=== PATIENT | female | born 1980 ===

== ENCOUNTER 2018-05-03 19:52 | Emergency (ER) | payer BC, MEDICAID ==
--- NOTE | 2018-05-03 20:16 | Emergency Department Record ---
History of Present Illness - General Chief Complaint: Fall Injury Stated Complaint: FALL/RT SIDE Time Seen by Provider: 05/03/18 20:01 Source: Patient Mode of Arrival: Ambulatory Limitations: No limitations - History of Present Illness Initial Comments: The patient is here due to a slip on ice and fall about 2 hours ago. She landed on her R side and now has pain over her R shoulder, elbow, wrist, Ribs, and Hip. The patient is ambulating without difficulty and denies any head trauma or neck injury. She also denies any AP, nausea, vomiting, or back pain. 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, by family Place Fall Occurred: Home Loss of Consciousness: None Symptoms Prior to Fall: None Severity: Severe Severity scale (1-10): 9 Quality: Aching Context: Tripped/slipped - [place] Coma Scale Eye Response: (4) Open spontaneously Motor Response: (6) Obeys commands Verbal Response: (5) Oriented [place] Total: 15 - Related Data Home Medications Medication Instructions Recorded Confirmed Last Taken Exemestane 25 mg PO DAILY 05/03/18 05/03/18 05/02/18 Allergies Allergy/AdvReac Type Severity Reaction Status Date / Time aspirin AdvReac PT UNSURE Unverified 02/15/17 08:04 OF REACTION codeine AdvReac ABDOMINAL Verified 05/03/18 20:07 PAIN Travel Screening - Travel/Exposure Within Last 30 Days Have you traveled within the last 30 days?: No - Travel Symptoms Symptom Screening: None Review of Systems Constitutional: Denies: Chills, Fever Eyes: Denies: Eye discharge ENT: Denies: Congestion Respiratory: Denies: Cough, Dyspnea Past Medical History - SOCIAL HISTORY Smoking Status: Never smoker Alcohol Use: Rare Drug Use: None - RESPIRATORY Hx Respiratory Disorders: No - CARDIOVASCULAR Hx Cardio Disorders: No - NEURO Hx Neuro Disorders: No - GI Hx GI Disorders: No - Hx Genitourinary Disorders: No - ENDOCRINE Hx Endocrine Disorders: No - MUSCULOSKELETAL Hx Musculoskeletal Disorders: No - PSYCH Hx Psych Problems: Yes Hx Anxiety: Yes - HEMATOLOGY/ONCOLOGY Hx Hematology/Oncology Disorders: Yes Hx Cancer: Yes Hx Chemotherapy: Yes Hx Radiation Therapy: Yes Family Medical History Any Significant Family History?: No Family Hx Comment (NOT TO BE USED IN PLACE OF ITEMS BELOW): denies Physical Exam - General General Appearance: Alert, Oriented x3, Cooperative, No acute distress - Head Head exam: Atraumatic, Normocephalic, Normal inspection - Eye Eye exam: Normal appearance, PERRL, EOMI - ENT Throat exam: Normal inspection. negative: Tonsillar erythema, Tonsillar exudate - Neck Neck exam: Normal inspection, Full ROM. negative: Meningismus, Tenderness ( There is no Cspine tenderness.) - Respiratory Respiratory exam: Normal lung sounds bilaterally, Chest wall tenderness (There is mild tenderness to the R lateral ribs.). negative: Respiratory distress - Cardiovascular Cardiovascular Exam: Regular rate, Normal rhythm, Normal heart sounds - GI/Abdominal GI/Abdominal exam: Soft, Normal bowel sounds. negative: Tenderness - Extremities Extremities exam: Normal inspection (There is no R arm bruising or swelling.), Normal capillary refill, Tenderness (There is mild tenderness to the R shoulder , elbow, wrist, and Hip. ). negative: Full ROM (The patient has decreased full ROM of the R shoulder, elbow and wrist due to pain. She is able to abduct to 90 degrees.) - Neurological Neurological exam: Alert, Normal gait, Other (The R arm is NVI.). negative: Abnormal gait, Motor sensory deficit - Skin Skin exam: negative: Rash Course Vital Signs 05/03/18 20:00 Temperature 97.9 F Pulse Rate [ 68 Pulse Ox Probe] Respiratory 20 Rate Blood Pressure 110/85 [Left Arm] Pulse Ox 100 - Reevaluation(s) Reevaluation #1: The patient is doing better at this time and her R arm ROM is improving. I did inform her of the neg xrays and the need for F/U with a PCP next week if not better. 05/03/18 21:17 05/03/18 21:20 Disposition Disposition: Discharge Clinical Impression: Contusion of arm, right, multiple sites Qualifiers: Encounter type: initial encounter Qualified Code(s): S40.021A - Contusion of right upper arm, initial encounter Contusion of rib on right side Qualifiers: Encounter type: initial encounter Qualified Code(s): S20.211A - Contusion of right front wall of thorax, initial encounter Disposition: Home, Self-Care Condition: (2) Stable Instructions: Contusion in Adults (ED), Rib Contusion (ED) Additional Instructions: Please wear the R arm sling for 4 days and continue your Tylenol for pain. Please see your family doctor for recheck next week if still having significant pain or pain with any range of motion of the R arm. Return to the ER for any worsening symptoms. Forms: Patient Portal Access Time of Disposition: 21:20 Quality - Quality Measures Quality Measures: N/A - Blood Pressure Screening View Details: Yes Does Patient Have Any of the Following: No Blood Pressure Classification: Pre-Hypertensive BP Reading Systolic Measurement: 110 Diastolic Measurement: 85 Screening for High Blood Pressure: < Pre-Hypertensive BP, F/U Documented > [ G8950] Pre-Hypertensive Follow-up Interventions: Referral to alternative/primary care provider.
--- NOTE | 2018-05-03 21:23 | Emergency Department Record ---
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, by family Place Fall Occurred: Home Loss of Consciousness: None Symptoms Prior to Fall: None Severity: Severe Severity scale (1-10): 9 Quality: Aching Context: Tripped/slipped - [place] Coma Scale Eye Response: (4) Open spontaneously Motor Response: (6) Obeys commands Verbal Response: (5) Oriented [place] Total: 15 - Related Data Home Medications Medication Instructions Recorded Confirmed Last Taken Exemestane 25 mg PO DAILY 05/03/18 05/03/18 05/02/18 Allergies Allergy/AdvReac Type Severity Reaction Status Date / Time aspirin AdvReac PT UNSURE Unverified 02/15/17 08:04 OF REACTION codeine AdvReac ABDOMINAL Verified 05/03/18 20:07 PAIN Travel Screening - Travel/Exposure Within Last 30 Days Have you traveled within the last 30 days?: No - Travel Symptoms Symptom Screening: None Review of Systems Constitutional: Denies: Chills, Fever Eyes: Denies: Eye discharge ENT: Denies: Congestion Respiratory: Denies: Cough, Dyspnea Past Medical History - SOCIAL HISTORY Smoking Status: Never smoker Alcohol Use: Rare Drug Use: None - RESPIRATORY Hx Respiratory Disorders: No - CARDIOVASCULAR Hx Cardio Disorders: No - NEURO Hx Neuro Disorders: No - GI Hx GI Disorders: No - Hx Genitourinary Disorders: No - ENDOCRINE Hx Endocrine Disorders: No - MUSCULOSKELETAL Hx Musculoskeletal Disorders: No - PSYCH Hx Psych Problems: Yes Hx Anxiety: Yes - HEMATOLOGY/ONCOLOGY Hx Hematology/Oncology Disorders: Yes Hx Cancer: Yes Hx Chemotherapy: Yes Hx Radiation Therapy: Yes Family Medical History Any Significant Family History?: No Family Hx Comment (NOT TO BE USED IN PLACE OF ITEMS BELOW): denies Physical Exam - General Limitations: No limitations Course Vital Signs 05/03/18 20:00 Temperature 97.9 F Pulse Rate [ 68 Pulse Ox Probe] Respiratory 20 Rate Blood Pressure 110/85 [Left Arm] Pulse Ox 100 Medical Decision Making - Data Complexity MDM Data: X-Ray Ordered and/or Reviewed - Radiology Data Radiology results: Report reviewed (R Shoulder, elbow, wrist, ribs, and hip: Neg for any acute changes per Rad.) Disposition Clinical Impression: Contusion of arm, right, multiple sites Qualifiers: Encounter type: initial encounter Qualified Code(s): S40.021A - Contusion of right upper arm, initial encounter Contusion of rib on right side Qualifiers: Encounter type: initial encounter Qualified Code(s): S20.211A - Contusion of right front wall of thorax, initial encounter Disposition: Home, Self-Care Condition: (2) Stable Instructions: Contusion in Adults (ED), Rib Contusion (ED) Additional Instructions: Please wear the R arm sling for 4 days and continue your Tylenol for pain. Please see your family doctor for recheck next week if still having significant pain or pain with any range of motion of the R arm. Return to the ER for any worsening symptoms. Forms: Patient Portal Access Quality - Quality Measures Quality Measures: N/A - Blood Pressure Screening View Details: Yes Does Patient Have Any of the Following: No Blood Pressure Classification: Pre-Hypertensive BP Reading Systolic Measurement: 110 Diastolic Measurement: 85 Screening for High Blood Pressure: < Pre-Hypertensive BP, F/U Documented > [ G8950] Pre-Hypertensive Follow-up Interventions: Referral to alternative/primary care provider.
--- NOTE | 2018-05-05 10:16 | RADIOLOGY REPORT ---
DATE: 05/03/2018 at 2031 hours. EXAM: RIGHT WRIST. HISTORY: Pain. TECHNIQUE: Three views of the right wrist. FINDINGS: Carpal alignment is preserved. No fracture or dislocation is seen. IMPRESSION: NEGATIVE. JOB NUMBER: [id number] MTDD
--- NOTE | 2018-05-05 10:23 | RADIOLOGY REPORT ---
DATE: 05/03/2018 at 2028 hours. EXAM: RIGHT SHOULDER. HISTORY: Slipped on ice. TECHNIQUE: Three views of the right shoulder are obtained. FINDINGS: There are postoperative changes in the right axilla. There is no evidence of fracture or dislocation. No erosive or destructive processes are identified. IMPRESSION: NEGATIVE RIGHT SHOULDER. JOB NUMBER: [id number] MTDD
--- NOTE | 2018-05-05 10:27 | RADIOLOGY REPORT ---
EXAM: RIGHT HIP HISTORY: FALL ON ICE, PAIN. TECHNIQUE: AP view of the pelvis and AP and lateral views of the right hip were obtained. FINDINGS: The hip joint itself is preserved without evidence of fracture or dislocation. The proximal femur appears unremarkable. There is no evidence of disruption of the osseous ring of the pelvis. IMPRESSION: NEGATIVE PELVIS AND RIGHT HIP. JOB NUMBER: [id number] MTDD
--- NOTE | 2018-05-05 10:31 | RADIOLOGY REPORT ---
DATE: 05/03/2018 at 2024 hours. EXAM: RIGHT RIBS. HISTORY: Fall on ice. TECHNIQUE: AP view of the chest and three views of the right ribs are obtained. FINDINGS: Again seen are postoperative changes in the right side of the chest wall. There is no evidence of rib fracture. Adjacent lung and pleural space are unremarkable. IMPRESSION: NEGATIVE RIGHT RIBS. JOB NUMBER: [id number] MTDD
--- NOTE | 2018-05-05 10:47 | RADIOLOGY REPORT ---
DATE: 05/03/2018 at 2033 hours. EXAM: RIGHT ELBOW. HISTORY: Fall on ice. TECHNIQUE: Three views of the elbow are obtained. FINDINGS: The elbow joint is preserved. There is no convincing evidence of fracture. There is no evidence of dislocation. IMPRESSION: NEGATIVE RIGHT ELBOW. JOB NUMBER: [id number] MTDD
== END 2018-05-03 21:29 | disposition home or self-care (01) ==
LOC: ER 19:52
DX: S40.021A Contusion of right upper arm, initial encounter (principal); S20.211A Contusion of right front wall of thorax, initial encounter; M25.551 Pain in right hip; M25.511 Pain in right shoulder; M25.531 Pain in right wrist; W00.0XXA Fall on same level due to ice and snow, initial encounter; Y92.009 Unspecified place in unspecified non-institutional (private) residence as the place of occurrence of the external cause
CPT/HCPCS: 99283; 99284